=== PATIENT | female | born 1970 | race Caucasian/White ===

== ENCOUNTER → 2016-11-07 | Outpatient (CLI) | payer OTHER ==
[~2016-11-07] VITALS: Ht 172.7 cm; Wt 131.5 kg
[~2016-11-07] MED LIST: BUTALB-APAP-CA1 EACH PO; CLARITIN10 MG PO; EXTRA STRENGTH500 M1 PO; GLUCOPHAGE1000 MG PO; LORAZEPAM0.5 MG PO; METFORMIN HCL1000 MG PO; MIRENA52 MG IY; MOTRIN800 MG PO; MULTI-DAY VITA1 EACH PO; OMEPRAZOLE40 M1 PO; TOPIRAMATE100 MG PO
== END | disposition home or self-care (01) ==
LOC: AMB 13:27
PROC: 0DJ08ZZ Inspection of Upper Intestinal Tract, Via Natural or Artificial Opening Endoscopic (ICD-10-PCS; principal; 2016-11-07)
DX: K29.70 Gastritis, unspecified, without bleeding (principal); K21.9 Gastro-esophageal reflux disease without esophagitis; E28.2 Polycystic ovarian syndrome; R73.01 Impaired fasting glucose; F41.9 Anxiety disorder, unspecified; F32.9 Major depressive disorder, single episode, unspecified; E66.01 Morbid (severe) obesity due to excess calories; Z68.42 Body mass index [BMI] 45.0-49.9, adult; Z87.891 Personal history of nicotine dependence; Z83.3 Family history of diabetes mellitus; Z82.49 Family history of ischemic heart disease and other diseases of the circulatory system; Z80.8 Family history of malignant neoplasm of other organs or systems

== ENCOUNTER 2016-11-15 08:12 | Inpatient (IN) | payer OTHER ==
[~2016-11-15] VITALS: Ht 172.7 cm; Wt 133.1 kg
[2016-11-15 16:05] VITALS: BP 164/79
[2016-11-15 18:01] LABS: POINT-OF-CARE METER ID UU14162508
[2016-11-15 19:27] VITALS: BP 141/78
[2016-11-15 23:44] VITALS: BP 125/69
[2016-11-16 00:06] LABS: POINT-OF-CARE METER ID UU14162508
[2016-11-16 03:32] VITALS: BP 149/70
[2016-11-16 05:52] LABS: POINT-OF-CARE METER ID UU14162508
[2016-11-16 06:47] LABS: HEMATOCRIT 36.8 % (36.0-46.0); MCH 31.1 PG (29.0-34.0); MCV 91.5 FL (83-99); MEAN PLAT.VOLUME 10.6 uM^3 (9.5-12.4); PLATELET COUNT 243 K/uL (156-360); RBC DIS.WIDTH-CV 12.6 % (11.8-14.6); RBC DIS.WIDTH-SD 41.8 % (39-53); RED BLOOD COUNT 4.02 M/uL (3.80-5.20)
[2016-11-16 07:18] LABS: ANION GAP 8 MEQ/L (2-14); CHLORIDE 104 MEQ/L (99-109); GFR ESTIMATE (CALCULATED) > 59 mL/min/; GLUCOSE 97 mg/dL (70-99); MAGNESIUM 1.8 mg/dl (1.3-2.7); SAMPLE HEMOLYSIS CHECK 0; SAMPLE ICTERIC CHECK 0; SAMPLE LIPEMIA CHECK 0; SODIUM 140 MEQ/L (136-147); UREA NITROGEN (BUN) 11 mg/dL (9-23)
[2016-11-16] MEDS ORDERED: HYDROCODON-ACE1 EAC7 PO (08:32)
== END 2016-11-16 10:54 | disposition home or self-care (01) | DRG 621 ==
LOC: 2SOUTH 08:12 → 2EAST 16:02
PROVIDERS: Surgery
PROC: 0DB64Z3 Excision of Stomach, Percutaneous Endoscopic Approach, Vertical (ICD-10-PCS; principal; 2016-11-15)
DX: E66.01 Morbid (severe) obesity due to excess calories (principal); F32.9 Major depressive disorder, single episode, unspecified; E28.2 Polycystic ovarian syndrome; F41.8 Other specified anxiety disorders; K21.9 Gastro-esophageal reflux disease without esophagitis; Z87.891 Personal history of nicotine dependence; Z68.41 Body mass index [BMI] 40.0-44.9, adult; M19.90 Unspecified osteoarthritis, unspecified site
CPT/HCPCS: 80048; 82948; 83735; 84100; 85027; 94799; J0131; J0690; J1100; J1170; J1644; J1650; J1815; J1885; J2250; J2405; J2710; J3010; J3480; J7120; S0020